=== PATIENT | male | born 1975 | race Caucasian/White ===

== ENCOUNTER 2016-11-26 07:46 | Emergency (ER) | payer OTHER ==
[~2016-11-26] VITALS: Ht 182.9 cm; Wt 106.3 kg
[~2016-11-26 07:46] MED LIST: ALBUTEROL SULF8.5 GM IH; AZITHROMYCIN250 MG1 PO; FLEXERIL10 MG PO; FLEXERIL5 MG PO; GUAIFENESIN WI120 ML PO; MOTRIN800 MG PO; NAPROSYN500 MG PO; PERCOCET 5/31 TABLET PO; PREDNISONE20 MG PO; TAMIFLU75 MG PO
[2016-11-26 08:08] LABS: POINT-OF-CARE METER ID UU13113778
[2016-11-26 08:46] LABS: POINT-OF-CARE METER ID UU13113747
[2016-11-26 08:50] LABS: HEMATOCRIT 45.2 % (38.0-50.0); MCH 31.4 PG (29.0-34.0); MCHC 35.4 G/DL (30.0-36.0); MCV 88.8 FL (86-99); MEAN PLAT.VOLUME 10.1 uM^3 (9.0-12.4); PLATELET COUNT 175 K/uL (156-360); RBC DIS.WIDTH-CV 11.9 % (11.8-14.6); RBC DIS.WIDTH-SD 38.3 % (39-53); RED BLOOD COUNT 5.09 M/uL (4.00-5.50)
[2016-11-26 09:02] LABS: CHLORIDE 102 mEq/L (99-109); POTASSIUM 3.8 mEq/L (3.7-5.4); SODIUM 139 mEq/L (136-147)
[2016-11-26 09:04] LABS: GLUCOSE 229 mg/dL (70-99)
[2016-11-26 09:06] LABS: ANION GAP 11 MEQ/L (2-14); TOTAL BILIRUBIN 0.7 mg/dL (0.0-1.0)
[2016-11-26 09:08] LABS: ALKALINE PHOSPHATASE 22 IU/L (3-129)
[2016-11-26 09:09] LABS: UREA NITROGEN (BUN) 22 mg/dL (9-23)
[2016-11-26 09:29] LABS: GFR ESTIMATE (CALCULATED) > 59 mL/min/
[2016-11-26 11:06] LABS: POINT-OF-CARE METER ID UU13113747
[2016-11-26 13:36] LABS: POINT-OF-CARE METER ID UU13113747
[2016-11-26 13:46] VITALS: BP 138/81
== END 2016-11-26 13:46 | disposition home or self-care (01) ==
LOC: EME 07:46
PROVIDERS: Nurse Practitioner Family
DX: T38.3X1A Poisoning by insulin and oral hypoglycemic [antidiabetic] drugs, accidental (unintentional), initial encounter (principal); E11.9 Type 2 diabetes mellitus without complications; J45.909 Unspecified asthma, uncomplicated
CPT/HCPCS: 80053; 82948; 85027; 99281; 99285

== ENCOUNTER 2017-09-28 19:59 | Emergency (ER) | payer OTHER ==
[~2017-09-28] VITALS: Ht 185.4 cm; Wt 105.0 kg
[2017-09-28 21:03] LABS: APPEARANCE SL.HAZY ((CLEAR)); BILIRUBIN NEGATIVE; BLOOD LARGE; COLOR YELLOW ((YELLOW)); GLUCOSE (STRIP) >=500; KETONES 5; LEUKOCYTES NEGATIVE; NITRITE NEGATIVE; PROTEIN (STRIP) 100; SPECIFIC GRAVITY 1.022 (1.000-1.030); UROBILINOGEN 0.2 MG/DL (0.2-1.0)
[2017-09-28 21:04] LABS: HEMATOCRIT 41.8 % (38.0-50.0); HEMOGLOBIN 15.2 G/DL (12.5-16.6); MCH 31.9 PG (29.0-34.0); MCHC 36.4 G/DL (30.0-36.0); MCV 87.6 FL (86-99); PLATELET COUNT 175 K/uL (156-360); RBC DIS.WIDTH-CV 11.9 % (11.8-14.6); RBC DIS.WIDTH-SD 38.3 % (39-53); RED BLOOD COUNT 4.77 M/uL (4.00-5.50)
[2017-09-28 21:17] LABS: CHLORIDE 103 mEq/L (99-109); POTASSIUM 4.1 mEq/L (3.7-5.4); SODIUM 141 mEq/L (136-147)
[2017-09-28 21:18] LABS: GLUCOSE 214 mg/dL (70-99)
[2017-09-28 21:22] LABS: CREATININE 1.3 mg/dL (0.6-1.3); GFR ESTIMATE (CALCULATED) > 59 mL/min/ (58.99-99999)
[2017-09-28 21:23] LABS: UREA NITROGEN (BUN) 15 mg/dL (9-23)
[2017-09-28 21:25] LABS: CREATINE KINASE 95 IU/L (1-294); TOTAL CK 95 IU/L (1-294)
[2017-09-28 21:30] LABS: CK-MB 1.6 ng/mL (0.0-4.9); CKMB RELATIVE INDEX 1.7 (0.0-3.9)
[2017-09-28] MEDS ORDERED: FLOMAX0.4 MG PO (22:07)
[2017-09-28] MEDS ORDERED: PERCOCET 5/31 TABLET PO (22:07)
[2017-09-28] MEDS ORDERED: NAPROSYN500 MG PO (22:07)
[2017-09-28] MEDS ORDERED: ZOFRAN ODT4 MG PO (22:07)
[2017-09-28 22:36] LABS: BACTERIA 1+ /HPF; EPITHELIAL CELLS 1+ /HPF; HYALINE CASTS 0-5 /LPF; MUCUS 1+ /LPF; RED BLOOD CELLS TNTC /HPF (0-5); UCUL ADDED? YES; WHITE BLOOD CELLS 0-5 /HPF (0-5)
[2017-09-28 23:19] VITALS: BP 149/87
== END 2017-09-28 23:23 | disposition home or self-care (01) ==
LOC: EME 19:59 → RME 19:59
DX: N13.2 Hydronephrosis with renal and ureteral calculous obstruction (principal); E11.65 Type 2 diabetes mellitus with hyperglycemia; Z87.442 Personal history of urinary calculi; J45.909 Unspecified asthma, uncomplicated; Z88.5 Allergy status to narcotic agent
CPT/HCPCS: 74176; 80048; 81003; 82550; 82553; 85027; 87086; 99281; 99285; J1885; J2405; J3010; J7030